=== PATIENT | male | born 1975 | race African-American/Black ===

== ENCOUNTER 2020-03-25 18:01 | Emergency (ER) | payer MEDICAID ==
[~2020-03-25] VITALS: Ht 167.6 cm; Wt 86.0 kg
[2020-03-25] MEDS ORDERED: TETANUS, DIPHTHERIA, PERTUSSIS VAC/PF 0.5ML (>7YR OLD) IM ONE (18:45)
[2020-03-25] MEDS ORDERED: LIDOCAINE HCL/PF 1% 10 MG/ML 5ML VIAL IJ ONE (18:45)
[2020-03-25] MEDS ORDERED: HYDROCODONE/ACETAMINOPHEN 5/325MG TABLET PO ONE (18:45)
[2020-03-25] MEDS ORDERED: BACITRACIN ZINC OINT UDPKT TOP ONE (18:45)
[2020-03-25 18:49] VITALS: BP 161/91
[2020-03-25] MEDS ORDERED: CEPHALEXIN 250MG CAPSULE PO SCH (21:15)
== END 2020-03-25 22:25 | disposition home or self-care (01) ==
LOC: ER 18:01
DX: S92.524B Nondisplaced fracture of middle phalanx of right lesser toe(s), initial encounter for open fracture (principal); S96.911A Strain of unspecified muscle and tendon at ankle and foot level, right foot, initial encounter; I10 Essential (primary) hypertension; J45.909 Unspecified asthma, uncomplicated; W31.82XA Contact with other commercial machinery, initial encounter; Y93.H2 Activity, gardening and landscaping; Y92.017 Garden or yard in single-family (private) house as the place of occurrence of the external cause
CPT/HCPCS: 12002; 73630; 90471; 90715; 99284; J3490; Z7610